=== PATIENT | female | born 1990 | race Caucasian/White ===

== ENCOUNTER 2024-06-23 15:27 | Emergency (ER) | payer OTHER ==
[2024-06-23 15:47] VITALS: BP 116/90; PULSE 78; RESP 16; TEMP 97.9; O2SAT 98
--- NOTE | 2024-06-23 15:59 | ERPHSYRPT ---
- History of Present Illness Source: patient Exam Limitations: no limitations Patient Subjective Stated Complaint: patient state she was at work at [employer] and she bent over and turned and heard a pop and started having severe back pain Triage Nursing Assessment: patient is alert and oriented x3, able to ambulate by self, no deformities or abnormalities noted patient stated was tender jsut above tailbone on posterior lower back. states sharp pain shooting down leg. Physician History: Patient was bent over twisting picking something up. She then got acute pain in her left lower lumbar area. It radiated down her left leg to about the knee. She did not have any bowel or bladder dysfunction and no Saddle paresthesia. She has no acute cord symptoms. She has no weakness. Standing helps the pain a little bit sitting makes it worse. She can find positions of comfort laying down. She does not have any neurological deficits. She does have some searing pain whenever the back is moved in the wrong direction. It radiates down the le g to about the level of the knee. Allergies/Adverse Reactions: No Known Drug Allergies Allergy (Unverified 05/22/24 09:35) Home Medications: Levothyroxine Sodium 125 mcg PO DAILY 05/06/24 [History] Paroxetine HCl 20 mg [Paxil 20 MG] 30 mg PO DAILY 05/06/24 [History] Quetiapine Fumarate 100 mg [Seroquel 100 MG] 400 mg PO HS 05/06/24 [History] Hx Tetanus, Diphtheria Vaccination/Date Given: (unk) Hx Influenza Vaccination/Date Given: No Hx Pneumococcal Vaccination/Date Given: No Travel Risk - International Travel Have you traveled outside of the country in past 3 weeks: No - Emerging Infectious Disease Are you exhibiting symptoms associated with any current EIDs: No - Review of Systems Constitutional: No Symptoms Eyes: No Symptoms Musculoskeletal: Back Pain Skin: No Symptoms Neurological: No Symptoms Psychological: No Symptoms All Other Systems: Reviewed and Negative - Past Medical History Pertinent Past Medical History: Yes Respiratory History: Asthma Endocrine Medical History: Hypothyroidism Other Medical History: PTSD. BPD. SCHIZOPHRENIA. MANIC/BIPOLAR. GENERALIZED ANXIETY PANIC DISORDER - Past Surgical History Past Surgical History: Yes Gastrointestinal: Appendectomy Female Surgical History: Tubal Ligation, Section Other Surgical History: LEFT EYE FOREIGN BODY REMOVAL - Female History Hx Last Menstrual Period: tubal ligation Hx Now: No - Social History Smoking Status: Never smoker Exposure to second hand smoke: No Drug Use: other - Social Determinants of Health Will the patient participate in the screening: Declined to provide - Nursing Vital Signs Nursing Vital Signs: Initial Vital Signs Temperature 97.9 F 06/23/24 15:27 Pulse Rate 78 06/23/24 15:27 Respiratory Rate 16 06/23/24 15:27 Blood Pressure 116/90 06/23/24 15:27 O2 Sat by Pulse Oximetry 98 06/23/24 15:27 Pain Scale Pain Intensity [Posterior Back 8 ] Pain Intensity 8 - Physical Exam General Appearance: no apparent distress Eye Exam: PERRL/EOMI Back Exam: normal inspection, No CVA tenderness, No rash Extremity Exam: normal inspection, normal range of motion Neurologic Exam: alert, oriented x 3, cooperative, normal mood/affect, nml station & gait (Antalgic gait), sensation nml, No motor deficits, No sensory deficit, No motor weakness Skin Exam: normal color, warm, dry SpO2: 98 - Course Nursing assessment & vital signs reviewed: Yes - Progress Progress: unchanged Progress Note: Patient seems to have symptoms of intervertebral disc herniation with some radiculopathy. She does not have any worrisome symptoms for acute cord Syndrome or anything like that. Movement makes his symptoms worse sitting down makes his symptoms worse standing up makes it better a little and lying flat makes it better a little. At this time she does not have any bowel or bladder dysfunction or other signs or symptoms of that are worrisome.I am going to give her a work note and start her on prednisone and [place]. She was told that she should follow-up with her primary care doctor and physical therapy may be an option. 06/23/24 15:57 Medical Desision Making - Risk of complications Minimal Risk: Minimal risk of morbidity - Departure Departure Disposition: Home Clinical Impression: Lumbar degenerative disc disease Condition: Stable Critical Care Time: No Referrals: Provider,Unknown [Primary Care Provider] - Follow up/PCP as directed Instructions: Sciatica (DC)
[2024-06-23] MEDS ORDERED: NORCO 5/325 MG ONE (16:02)
[2024-06-23] MEDS ORDERED: DELTASONE 20 MG ONE (16:02)
[2024-06-23] MEDS: NORCO 5/325 MG PO ONE (16:04)
[2024-06-23] MEDS: DELTASONE 20 MG PO ONE (16:04)
== END 2024-06-23 16:30 | disposition home or self-care (01) ==
LOC: ED 15:27
DX: M51.369 Other intervertebral disc degeneration, lumbar region without mention of lumbar back pain or lower extremity pain (principal); M54.50 Low back pain, unspecified; Z79.891 Long term (current) use of opiate analgesic; Z79.52 Long term (current) use of systemic steroids; Z79.899 Other long term (current) drug therapy
CPT/HCPCS: 99282; 99283; A9270-GY

== ENCOUNTER 2024-11-26 18:51 | Emergency (ER) | payer MEDICAID ==
[2024-11-26 19:25] VITALS: TEMP 97
--- NOTE | 2024-11-26 19:39 | ERPHSYRPT ---
- History of Present Illness Time Seen by Provider: 11/26/24 19:21 Source: patient Exam Limitations: no limitations Patient Subjective Stated Complaint: intermittent htn the last 3 days. no history. Triage Nursing Assessment: Pt arrives to ER bed 6 ambulatory. Mother with pt. Pt reports high blood pressure readings intermittently over the last 3 days with use of home wrist cuff. States she does not have a history of hypertension. Readings at home today per pt were 120/104 and 143/83. States when bp reads high, she feels lightheaded and gets headache. Also has double vision at times. Denies chest pain. Skin pwd. A &Ox3. At this time, pt reports a headache and slight light headedness. PERRLA noted on exam. Pupils 3-4mm bilaterally. Physician History: 34-year-old female presents to the emergency room with elevated blood pressure concerns patient reports she has been feeling lightheaded she reports her pressures have been elevated she was measuring at home she says been in the 140s denies any chest pain or shortness of breath denies any cough congestion denies any fevers denies any urinary symptoms denies any back pain patient has a family history of hypertension patient is now in ED for further eval Timing/Duration: day(s) (3) Severity: mild Associated Symptoms: No nausea, No vomiting, No heartburn, No fever Allergies/Adverse Reactions: No Known Drug Allergies Allergy (Verified 10/29/24 22:13) Home Medications: Levothyroxine Sodium 125 mcg PO DAILY 05/06/24 [History] Paroxetine HCl 20 mg [Paxil 20 MG] 40 mg PO DAILY 05/06/24 [History] Quetiapine Fumarate 100 mg [Seroquel 100 MG] 600 mg PO HS 05/06/24 [History] Oxcarbazepine 300 mg [Trileptal 300 MG Tablet] 300 mg PO BID 10/29/24 [History] Hx Tetanus, Diphtheria Vaccination/Date Given: (unknown) Hx Influenza Vaccination/Date Given: No Hx Pneumococcal Vaccination/Date Given: No Travel Risk - International Travel Have you traveled outside of the country in past 3 weeks: No - Emerging Infectious Disease Are you exhibiting symptoms associated with any current EIDs: No Symptoms: Vomitting - Review of Systems Constitutional: No Fever, No Chills Eyes: No Symptoms Ears, Nose, & Throat: No Symptoms Respiratory: No Cough, No Dyspnea Cardiac: No Chest Pain, No Edema, No Syncope Abdominal/Gastrointestinal: No Abdominal Pain, No Nausea, No Vomiting, No Diarrhea Genitourinary Symptoms: No Dysuria Musculoskeletal: No Back Pain, No Neck Pain Skin: No Rash Neurological: No Dizziness, No Focal Weakness, No Sensory Changes Psychological: No Symptoms Endocrine: No Symptoms All Other Systems: Reviewed and Negative - Past Medical History Pertinent Past Medical History: Yes Cardiac History: High Cholesterol Respiratory History: Asthma Endocrine Medical History: Hypothyroidism Musculoskeletal History: Arthritis Other Medical History: anemia - Past Surgical History Past Surgical History: Yes Neuro Surgical History: No Pertinent History Cardiac: No Pertinent History Respiratory: No Pertinent History Gastrointestinal: Appendectomy Genitourinary: No Pertinent History Female Surgical History: Tubal Ligation, Section Other Surgical History: LEFT EYE FOREIGN BODY REMOVAL, ingrown toe nail removals - Female History Hx Last Menstrual Period: 10/28/2024 Hx Now: No - Social History Smoking Status: Current every day smoker How long have you smoked: 18 yrs Exposure to second hand smoke: Yes Drug Use: none - Social Determinants of Health Will the patient participate in the screening: Yes Do you worry about a steady place to live?: Yes Do you have any problems with any of the following?: No known problems In the past 12 months,have you had to go without utilities?: No Transportation Issues: No Has anyone in your support network made you feel unsafe?: Yes Have you or anyone in your house had to go w/o enough food: No Comment: Pt states, "I'm taking care of it, that's why I got a job". - Nursing Vital Signs Nursing Vital Signs: Initial Vital Signs Temperature 97.0 F 11/26/24 19:20 Pulse Rate 86 11/26/24 19:20 Respiratory Rate 16 11/26/24 19:20 Blood Pressure 108/83 11/26/24 19:20 O2 Sat by Pulse Oximetry 96 11/26/24 19:20 Pain Scale Pain Intensity 2 - Physical Exam SpO2: 96 Ordered Tests: Active Orders 24 hr Category Date Time Status Stitcher Operator STAT Care 11/26/24 19:37 Active EKG-ER Only STAT Care 11/26/24 19:36 Active IV Insertion STAT Care 11/26/24 19:36 Active CHEST 2 VIEWS (PA AND LAT) Stat Exams 11/26/24 19:47 Completed CBC W DIFF Stat Lab 11/26/24 19:47 Completed CMP Stat Lab 11/26/24 19:47 Completed MAGNESIUM Stat Lab 11/26/24 19:47 Completed TROPONIN Q3H Lab 11/26/24 19:47 Completed UA W/RFX UR CULTURE Stat Lab 11/26/24 20:21 Completed Lab/Rad Data: Laboratory Result Diagrams 11/26/24 19:47 11/26/24 19:47 Laboratory Results 11/26/24 11/26/24 11/26/24 Range/Units 20:21 19:47 19:47 WBC (3.98-10.04) x10^3/uL RBC (3.93-5.22) x10^6/uL Hgb (11.2-15.7) g/dL Hct (34.1-44.9) % MCV (79.4-94.8) fL MCH (25.6-32.2) pg MCHC (32.2-35.5) g/dL RDW (11.7-14.4) % Plt Count (182-369) x10^3/uL MPV (9.4-12.3) fL Gran % (34.0-71.1) % Immature Gran % (Auto) (0.001-0.429) % Nucleat RBC Rel Count (0.00-0.2) % Eos # (Auto) (0.04-0.36) x10^3/uL Immature Gran # (Auto) (0.001-0.031) x10^3u/L Absolute Lymphs (auto) (1.18-3.74) x10^3/uL Absolute Monos (auto) (0.24-0.86) x10^3/uL Absolute Nucleated RBC (0.00-0.012) x10^3u/L Lymphocytes % (19.3-51.7) % Monocytes % (4.7-12.5) % Eosinophils % (0.7-5.8) % Basophils % (0.1-1.2) % Absolute Granulocytes (1.56-6.13) x10^3/uL Basophils # (0.01-0.08) x10^3/uL Sodium 136 (135-145) mmol/L Potassium 4.0 (3.5-5.1) mmol/L Chloride 103 (98-107) mmol/L Carbon Dioxide 24 (22-30) mmol/L Anion Gap 12.8 (5-15) MEQ/L BUN 11 (7-17) mg/dL Creatinine 0.64 (0.52-1.04) mg/dL Estimated GFR 118.9 ML/MIN Glucose 87 (74-106) mg/dL Calcium 9.2 (8.4-10.2) mg/dL Magnesium 2.1 (1.6-2.3) mg/dL Total Bilirubin < 0.10 L (0.2-1.3) mg/dL AST 16 (14-36) U/L ALT 12 (0-35) U/L Alkaline Phosphatase 71 (38-126) U/L Troponin I < 0.012 (0.000-0.033) ng/mL Serum Total Protein 6.8 (6.3-8.2) g/dL Albumin 3.9 (3.5-5.0) g/dL Urine Color Yellow (Yellow) Urine Appearance Clear (Clear) Urine pH 6.5 (4.6-8.0) Ur Specific [place] 1.015 (1.005-1.030) Urine Protein Negative (Negative) Urine Glucose (UA) Negative (Negative) mg/dL Urine Ketones Negative (Negative) Urine Blood Negative (Negative) Urine Nitrite Negative (Negative) Urine Bilirubin Negative (Negative) Urine Urobilinogen 1.0 A (0.2) mg/dL Ur Leukocyte Esterase Negative (Negative) U Hyaline Cast (Auto) NONE SEEN (0-2) /LPF Urine Microscopic RBC 0-2 (0-5) /HPF Urine Microscopic WBC 0-2 (0-5) /HPF Ur Epithelial Cells None Seen (None Seen) /HPF Urine Bacteria None Seen (None Seen) /HPF Urine Culture Reflexed NO (NO) 11/26/24 Range/Units 19:47 WBC 10.2 H (3.98-10.04) x10^3/uL RBC 4.37 (3.93-5.22) x10^6/uL Hgb 12.3 (11.2-15.7) g/dL Hct 38.6 (34.1-44.9) % MCV 88.3 (79.4-94.8) fL MCH 28.1 (25.6-32.2) pg MCHC 31.9 L (32.2-35.5) g/dL RDW 15.4 H (11.7-14.4) % Plt Count 294 (182-369) x10^3/uL MPV 10.0 (9.4-12.3) fL Gran % 54.5 (34.0-71.1) % Immature Gran % (Auto) 0.3 (0.001-0.429) % Nucleat RBC Rel Count 0.0 (0.00-0.2) % Eos # (Auto) 0.32 (0.04-0.36) x10^3/uL Immature Gran # (Auto) 0.03 (0.001-0.031) x10^3u/L Absolute Lymphs (auto) 3.65 (1.18-3.74) x10^3/uL Absolute Monos (auto) 0.60 (0.24-0.86) x10^3/uL Absolute Nucleated RBC 0.00 (0.00-0.012) x10^3u/L Lymphocytes % 35.7 (19.3-51.7) % Monocytes % 5.9 (4.7-12.5) % Eosinophils % 3.1 (0.7-5.8) % Basophils % 0.5 (0.1-1.2) % Absolute Granulocytes 5.56 (1.56-6.13) x10^3/uL Basophils # 0.05 (0.01-0.08) x10^3/uL Sodium (135-145) mmol/L Potassium (3.5-5.1) mmol/L Chloride (98-107) mmol/L Carbon Dioxide (22-30) mmol/L Anion Gap (5-15) MEQ/L BUN (7-17) mg/dL Creatinine (0.52-1.04) mg/dL Estimated GFR ML/MIN Glucose (74-106) mg/dL Calcium (8.4-10.2) mg/dL Magnesium (1.6-2.3) mg/dL Total Bilirubin (0.2-1.3) mg/dL AST (14-36) U/L ALT (0-35) U/L Alkaline Phosphatase (38-126) U/L Troponin I (0.000-0.033) ng/mL Serum Total Protein (6.3-8.2) g/dL Albumin (3.5-5.0) g/dL Urine Color (Yellow) Urine Appearance (Clear) Urine pH (4.6-8.0) Ur Specific [place] (1.005-1.030) Urine Protein (Negative) Urine Glucose (UA) (Negative) mg/dL Urine Ketones (Negative) Urine Blood (Negative) Urine Nitrite (Negative) Urine Bilirubin (Negative) Urine Urobilinogen (0.2) mg/dL Ur Leukocyte Esterase (Negative) U Hyaline Cast (Auto) (0-2) /LPF Urine Microscopic RBC (0-5) /HPF Urine Microscopic WBC (0-5) /HPF Ur Epithelial Cells (None Seen) /HPF Urine Bacteria (None Seen) /HPF Urine Culture Reflexed (NO) - Departure Departure Disposition: Home Clinical Impression: Lightheaded Condition: Stable Critical Care Time: No Referrals: KAROLINE REED MD [Primary Care Provider, [facility]] - Follow up/PCP as directed Instructions: High blood pressure in adults, Controlling your blood pressure through lifestyle Forms: Work/School Release Form
[2024-11-26 19:59] LABS: BASOPHIL % 0.5 % (0.1-1.2); Basophil (Absolute #) 0.05 x10^3/uL (0.01-0.08); Eosinophil (Absolute #) 0.32 x10^3/uL (0.04-0.36); Hematocrit 38.6 % (34.1-44.9); Hemoglobin 12.3 g/dL (11.2-15.7); IMMATURE GRAN # 0.03 x10^3u/L (0.001-0.031); IMMATURE GRAN % 0.3 % (0.001-0.429); Lymphocyte (Absolute #) 3.65 x10^3/uL (1.18-3.74); Mean Corpuscular Hemoglobin 28.1 pg (25.6-32.2); Mean Corpuscular Hgb Concent. 31.9 g/dL (32.2-35.5); Monocyte (Absolute #) 0.60 x10^3/uL (0.24-0.86); NUCLEATED RBC # 0.00 x10^3u/L (0.00-0.012); NUCLEATED RBC % 0.0 % (0.00-0.2); Platelet Count 294 x10^3/uL (182-369); Red Blood Count 4.37 x10^6/uL (3.93-5.22); White Blood Count 10.2 x10^3/uL (3.98-10.04)
--- NOTE | 2024-11-26 20:03 | XRAY ---
Indication: Hypertension. Comparison: None PA/lateral chest demonstrates normal heart, lungs, and bony thorax.
[2024-11-26 20:11] LABS: Calcium 9.2 mg/dL (8.4-10.2); Carbon Dioxide 24 mmol/L (22-30); Creatinine 1 0.64 mg/dL (0.52-1.04); EST GLOMERULAR FILTRATION RATE 118.9 ML/MIN; Glucose 87 mg/dL (74-106); Potassium 4.0 mmol/L (3.5-5.1); SGOT/AST 16 U/L (14-36); SGPT/ALT 12 U/L (0-35); Total Protein 6.8 g/dL (6.3-8.2)
[2024-11-26 20:25] VITALS: RESP 18
[2024-11-26 20:35] LABS: Glucose, Urine Negative (Negative); Protein,Urine Dip Negative (Negative); RBC 0-2 /HPF (0-5); WBC 0-2 /HPF (0-5)
[2024-11-26 20:36] VITALS: O2SAT 96
[2024-11-26 20:38] VITALS: PULSE 77
[2024-11-26 21:00] VITALS: BP 110/82
== END 2024-11-26 20:40 | disposition home or self-care (01) ==
LOC: ED 18:51
DX: R42 Dizziness and giddiness (principal); Z79.899 Other long term (current) drug therapy; Z72.0 Tobacco use; Z59.819 Housing instability, housed unspecified; Z63.8 Other specified problems related to primary support group

== ENCOUNTER 2024-12-26 14:26 | Emergency (ER) | payer MEDICAID ==
[2024-12-26 14:29] VITALS: TEMP 96.7
[2024-12-26] MEDS ORDERED: DELTASONE 20 MG ONE (14:44)
[2024-12-26] MEDS: DELTASONE 20 MG PO ONE (14:45)
[2024-12-26] MEDS ORDERED: DUONEB 0.5-3 MG/3 ml Neb IH ONE (14:48)
[2024-12-26] MEDS ORDERED: PROVENTIL Solution 2.5 MG/0.5 ML IH ONE (14:49)
[2024-12-26] MEDS: PROVENTIL 2.5 MG/3 ML NEB IH ONE (14:52)
[2024-12-26] MEDS: DUONEB 0.5-3 MG/3 ml Neb IH ONE (14:52)
--- NOTE | 2024-12-26 15:23 | XRAY ---
Indication: Cough. Comparison: November 26, 2024 PA/lateral chest again demonstrates normal heart, lungs, and bony thorax.
--- NOTE | 2024-12-26 15:44 | ERPHSYRPT ---
- History of Present Illness Time Seen by Provider: 12/26/24 14:28 Source: patient Patient Subjective Stated Complaint: Pt has had a cough for 2-3 weeks and over the last couple of days it has become harder to breath Triage Nursing Assessment: Pt brought self to the ER, tachycardic, denies pain, dry cough, pulses normal, skin n/w/d, denies chest pain, thought that it was allergy related, smokes and vapes Physician History: This is a 34-year-old female with a known history of asthma who is also a smoker has been coughing for several days. No fever or chills. Nonproductive cough. No chest pain. No abdominal pain. No nausea or vomiting. Allergies/Adverse Reactions: No Known Drug Allergies Allergy (Verified 12/26/24 14:36) Home Medications: Levothyroxine Sodium 125 mcg PO DAILY 05/06/24 [History] Paroxetine HCl 20 mg [Paxil 20 MG] 30 mg PO DAILY 05/06/24 [History] Quetiapine Fumarate 100 mg [Seroquel 100 MG] 600 mg PO HS 05/06/24 [History] Oxcarbazepine 300 mg [Trileptal 300 MG Tablet] 300 mg PO BID 10/29/24 [History] Hx Tetanus, Diphtheria Vaccination/Date Given: (unknown) Hx Influenza Vaccination/Date Given: No Hx Pneumococcal Vaccination/Date Given: No Travel Risk - International Travel Have you traveled outside of the country in past 3 weeks: No - Emerging Infectious Disease Are you exhibiting symptoms associated with any current EIDs: Yes Symptoms: Shortness of Breath - Review of Systems All Other Systems: Reviewed and Negative (As per HPI otherwise negative) - Past Medical History Pertinent Past Medical History: Yes Cardiac History: High Cholesterol Respiratory History: Asthma Endocrine Medical History: Hypothyroidism Musculoskeletal History: Arthritis Other Medical History: anemia - Past Surgical History Past Surgical History: Yes Neuro Surgical History: No Pertinent History Cardiac: No Pertinent History Respiratory: No Pertinent History Gastrointestinal: Appendectomy Genitourinary: No Pertinent History Female Surgical History: Tubal Ligation, Section Other Surgical History: LEFT EYE FOREIGN BODY REMOVAL, ingrown toe nail removals - Female History Hx Last Menstrual Period: 12/13/2024 Hx Now: No - Social History Smoking Status: Current every day smoker How long have you smoked: 18 yrs Exposure to second hand smoke: Yes Drug Use: none - Social Determinants of Health Will the patient participate in the screening: Yes Do you worry about a steady place to live?: No Do you have any problems with any of the following?: No known problems In the past 12 months,have you had to go without utilities?: No Transportation Issues: No Has anyone in your support network made you feel unsafe?: No Have you or anyone in your house had to go w/o enough food: No Comment: . - Nursing Vital Signs Nursing Vital Signs: Initial Vital Signs Temperature 96.7 F 12/26/24 14:28 Pulse Rate 102 H 12/26/24 14:28 Blood Pressure 103/69 12/26/24 14:28 O2 Sat by Pulse Oximetry 98 12/26/24 14:28 Pain Scale Pain Intensity 0 - Physical Exam SpO2: 98 Comments: 12/26/24 15:39 General: Well-nourished well-developed. No apparent distress. HEENT: Normocephalic atraumatic no obvious facial or neck deformity or injury. Neck: Supple. No deformity or mass noted. CV: RRR NL Perfusion. No edema Resp: No Respiratory distress. Speaks full sentences. Bilateral inspiratory expiratory wheezes. Abd: ND SNT MSK: No deformity or TTP Neuro: Alert and [place] x4. No gross focal neurologic changes Psych: No SI, HI or grave disability Ordered Tests: Active Orders 24 hr Category Date Time Status CHEST 2 VIEWS (PA AND LAT) Stat Exams 12/26/24 14:41 Completed Respiratory Therapy Assessment DAILY RT 12/26/24 15:55 Active Medication Summary Discontinued Medications Generic Name Dose Route Start Last Admin Trade Name Odilonq PRN Reason Stop Dose Admin Albuterol Sulfate 7.5 mg 12/26/24 14:40 12/26/24 14:52 Albuterol Sulfate 2.5 Mg/3 Ml Neb IH 12/26/24 14:41 7.5 mg STAT ONE Administration Albuterol Sulfate Confirm 12/26/24 14:49 Albuterol Solution 2.5 Mg/0.5 Ml Ud Solution Administered 12/26/24 14:50 Dose 7.5 mg IH .STK-MED ONE Albuterol/Ipratropium 3 ml 12/26/24 14:40 12/26/24 14:52 Ipratropium/Albuterol Sulfate 3 Ml Ampul.Neb IH 12/26/24 14:41 3 ml STAT ONE Administration Albuterol/Ipratropium Confirm 12/26/24 14:48 Ipratropium/Albuterol Sulfate 3 Ml Ampul.Neb Administered 12/26/24 14:49 Dose 3 ml IH .STK-MED ONE Prednisone 60 mg 12/26/24 14:40 12/26/24 14:45 Prednisone 20 Mg Tablet PO 12/26/24 14:41 60 mg STAT ONE Administration Prednisone Confirm 12/26/24 14:44 Prednisone 20 Mg Tablet Administered 12/26/24 14:45 Dose 60 mg .ROUTE .STK-MED ONE - Progress Progress Note: 12/26/24 15:39 Normal chest x-ray. Patient with asthma exacerbation. Counseled about smoking. Otherwise stable vital signs 12/26/24 15:58 Repeat exam with no further wheezing. Patient will be given a note off work today. She states she was having some yellow phlegm. Will add azithromycin to her prescription discharge. - Departure Departure Disposition: Home Clinical Impression: Asthma exacerbation Qualifiers: Asthma severity: mild Asthma persistence: unspecified Qualified Code(s): J45.901 - Unspecified asthma with (acute) exacerbation Condition: Stable Critical Care Time: No Referrals: KAROLINE REED MD [Primary Care Provider, [facility]] - Follow up/PCP as directed Instructions: Asthma in adults, Cough, Adult (DC) Additional Instructions: You have been evaluated for an emergency medical condition. At this time, given the current history and events presented, the examination conducted and any possible testing you may have had, you have been given a presumptive diagnosis based on the current information is obtained. Your discharge diagnosis is presumptive and not necessarily definitive. Medical conditions present in various stages very often without all the symptoms or findings described in medical literature. Other symptoms, concerns or conditions may arise and your diagnoses may evolve or change and/or your condition could potentially worsen after the time of disposition or discharge. You have been given a presumptive diagnosis and your condition appears to be stable, but your medical issues can change or worsen. If there is worsening of your condition including difficulty breathing, swallowing, speaking, chest pain or pressure, intractable vomiting, worsening or changing mental status, numbness, tingling or weakness of your body or arms or legs, thoughts or plans of harming yourself or others, or any other concerns, call 911 and/or return immediately to the closest emergency department. It is important you follow-up with your doctor on the next business day. Call your doctor, or the referral provided if you do not have a doctor, when they open to schedule a follow-up appointment in the next 1 or latest 2 days. Please refer to the attached sheet. If you do not have primary care doctor, you can call the [facility] referral line at [phone]. Return immediately if your symptoms worsen or if you are unable to obtain further care. My team and I thank you for choosing the [facility] emergency healthcare needs. We wish you a speedy recovery. Very respectfully, Dr. Carmen Mohan M.D. [place] [employer] Board-certified Emergency Physician Forms: Work/School Release Form Prescriptions: Albuterol Sulfate [Albuterol Sulfate Hfa] 8.5 gm IH Q6HPRN PRN #1 inhaler PRN Reason: Shortness Of Breath Prednisone 20 mg [Deltasone 20 mg] 40 mg PO DAILY 5 Days #10 tablet Azithromycin 250 mg [Zithromax 250 MG TABLET] 250 mg PO ZPACK #6 tablet
[2024-12-26 15:57] VITALS: PULSE 96; RESP 24
[2024-12-26 16:01] VITALS: O2SAT 98
[2024-12-26 16:02] VITALS: BP 109/77
== END 2024-12-26 16:08 | disposition home or self-care (01) ==
LOC: ED 14:26
DX: J45.901 Unspecified asthma with (acute) exacerbation (principal); R05.1 Acute cough; Z79.899 Other long term (current) drug therapy; Z72.0 Tobacco use